=== PATIENT | female | born 1965 | race African-American/Black ===

== ENCOUNTER 2018-10-28 08:37 | Emergency (ER) | payer MEDICAID, OTHER ==
[~2018-10-28] VITALS: Ht 167.6 cm; Wt 90.0 kg
[2018-10-28] MEDS ORDERED: FENTANYL CITRATE/PF 50MCG/ML 2ML VIAL IV ONE ×2 (09:15→11:15)
[2018-10-28] MEDS ORDERED: KETAMINE HCL 50 MG/ML 10ML IM ONE (11:45)
[2018-10-28] MEDS ORDERED: MORPHINE SULFATE 4 MG/ML CPJ (NOT FOR IM USE) IV PRN (12:15)
[2018-10-28] MEDS ORDERED: ONDANSETRON HCL 4MG/2ML INJ IV PRN (12:15)
[2018-10-28] MEDS ORDERED: ACETAMINOPHEN 325MG TABLET PO PRN (12:15)
[2018-10-28] MEDS ORDERED: HYDROCODONE/ACETAMINOPHEN 5/325MG TABLET PO PRN (12:15)
[2018-10-28 12:34] LABS: BASOPHILS % 0.7 % (0.0-2.0); HEMATOCRIT. 35.5 % (36.0-48.0); HEMOGLOBIN. 11.8 g/dL (12.0-16.0); MEAN CORPUSCULAR HEMOGLOBIN 27.1 pg (28.0-32.0); MEAN CORPUSCULAR VOLUME 81.3 fL (81.0-99.0); MEAN PLATELET VOLUME 8.4 fl (7.4-10.4); MONOCYTES % 8.4 % (2.0-8.0); NEUTROPHILS % 50.9 % (40.0-76.0); PLATELET 232 x1000/uL (130-400); RED BLOOD CELL COUNT 4.37 mill/uL (4.2-5.4); RED CELL DISTRIBUTION WIDTH 14.8 % (11.6-14.6)
[2018-10-28 12:37] LABS: CHLORIDE 109 mEq/L (98-107)
[2018-10-28] MEDS ORDERED: CLONIDINE 0.1MG TABLET PO PRN (14:00)
[2018-10-28 18:14] VITALS: BP 137/79
== END 2018-10-28 17:52 | disposition short-term general hospital (02) ==
LOC: ER 08:57 → CANBEDREQ 17:46 → ER 17:52
DX: S82.892A Other fracture of left lower leg, initial encounter for closed fracture (principal); S82.852A Displaced trimalleolar fracture of left lower leg, initial encounter for closed fracture; E78.00 Pure hypercholesterolemia, unspecified; I10 Essential (primary) hypertension; W01.0XXA Fall on same level from slipping, tripping and stumbling without subsequent striking against object, initial encounter; Y93.89 Activity, other specified; Y92.89 Other specified places as the place of occurrence of the external cause; Y99.8 Other external cause status
CPT/HCPCS: 29515; 36415; 73600; 73610; 80053; 85025; 93970; 96372; 96374; 96375; 96376; 99285; J2270; J3010; J3490

== ENCOUNTER 2019-08-02 10:38 | Emergency (ER) | payer OTHER ==
[~2019-08-02] VITALS: Ht 172.7 cm; Wt 75.0 kg
[2019-08-02] MEDS ORDERED: HYDROCODONE/ACETAMINOPHEN 5/325MG TABLET PO ONE (12:15)
[2019-08-02 12:31] LABS: CLARITY URINE CLEAR (CLEAR); COLOR URINE YELLOW (YELLOW); KETONES URINE NEGATIVE (NEGATIVE); LEUKOCYTE ESTERASE URINE TRACE (NEGATIVE); NITRITE URINE NEGATIVE (NEGATIVE); OCCULT BLOOD URINE NEGATIVE (NEGATIVE); PROTEIN URINE NEGATIVE (NEGATIVE); SPECIFIC GRAVITY URINE 1.009 (1.005-1.030); UROBILINOGEN URINE 0.2 E.U./dL (0.2-1.0)
[2019-08-02 13:08] VITALS: BP 140/82
== END 2019-08-02 13:05 | disposition home or self-care (01) ==
LOC: ER 10:38
DX: S10.83XA Contusion of other specified part of neck, initial encounter (principal); S20.229A Contusion of unspecified back wall of thorax, initial encounter; A59.9 Trichomoniasis, unspecified; N39.0 Urinary tract infection, site not specified; V49.49XA Driver injured in collision with other motor vehicles in traffic accident, initial encounter; Y93.89 Activity, other specified; Y92.89 Other specified places as the place of occurrence of the external cause; Y99.8 Other external cause status; E78.00 Pure hypercholesterolemia, unspecified; I10 Essential (primary) hypertension
CPT/HCPCS: 81003; 99283